=== PATIENT | male | born 1995 | race Two or more races ===

== ENCOUNTER 2024-12-19 16:20 | Emergency (ER) | payer MEDICAID, OTHER ==
[~2024-12-19] VITALS: Ht 182.9 cm; Wt 78.0 kg
[2024-12-19 18:45] LABS: BASOPHILS % (AUTO) 0.1 % (0.0-2.0); EOSINOPHILS # (AUTO) 0.1 K/uL (0.0-0.7); EOSINOPHILS % (AUTO) 0.6 % (0.0-6.0); HEMATOCRIT 50 % (39-51); HEMOGLOBIN 17.2 g/dL (13.5-17.5); LYMPHOCYTES # (AUTO) 1.7 K/uL (0.8-4.8); LYMPHOCYTES % (AUTO) 19.9 % (20.0-44.0); MEAN CORPUSCULAR HEMOGLOBIN 29 PG (26.0-33.0); MEAN CORPUSCULAR HGB CONC 35 g/dl (31.0-36.0); MEAN CORPUSCULAR VOLUME 84 fL (80-96); MONOCYTES # (AUTO) 0.5 K/uL (0.1-1.30); NEUTROPHILS # (AUTO) 6.2 K/uL (1.8-8.9); NEUTROPHILS % (AUTO) 73.4 % (43.0-81.0); PLATELET COUNT (AUTO) 160 K/uL (150-450); RED BLOOD CELL COUNT(AUTO) 5.98 MIL/uL (4.5-6.0); RED CELL DISTRIBUTION WIDTH 13.3 % (11.5-15.0); WHITE BLOOD COUNT (AUTO) 8.5 K/uL (4.3-11.0)
[2024-12-19 18:51] LABS: CALCIUM, SERUM 8.9 mg/dL (8.5-10.1); CREATININE 0.9 mg/dL (0.6-1.3); POTASSIUM 4.3 mmol/L (3.5-5.1)
[2024-12-19] MEDS ORDERED: KETOROLAC TROMETHAMINE 15 MG/ML VIAL ONE (18:51)
[2024-12-19] MEDS ORDERED: METOCLOPRAMIDE HCL 10 MG/2 ML VIAL ONE (18:52)
[2024-12-19] MEDS ORDERED: MECLIZINE HCL 25 MG TABLET ONE (18:52)
[2024-12-19 18:57] LABS: ALBUMIN 4.2 g/dL (3.4-5.0); BILIRUBIN,DIRECT 0.1 mg/dL (0.0-0.2); BILIRUBIN,TOTAL 0.4 mg/dL (0.2-1.0); TOTAL PROTEIN, SERUM 7.9 g/dL (6.4-8.2)
[2024-12-19] MEDS: IV NS 0.9% 1,000 ML BAG IV ONE (19:14)
[2024-12-19] MEDS: MECLIZINE HCL 25 MG TABLET PO ONE (19:15)
[2024-12-19] MEDS: KETOROLAC TROMETHAMINE 15 MG/ML VIAL IV ONE (19:16)
[2024-12-19] MEDS: METOCLOPRAMIDE HCL 10 MG/2 ML VIAL IV ONE (19:17)
[2024-12-19] MEDS ORDERED: IV NS 0.9% 250 ML IV ONE (19:23)
[2024-12-19] MEDS ORDERED: IOHEXOL-350 100 ML VIAL IV ONE (19:23)
[2024-12-19] MEDS ORDERED: HYDR-500 PO (20:41)
[2024-12-19 21:05] VITALS: BP 128/77; TEMP 208.4; O2SAT 98
== END 2024-12-19 21:06 | disposition home or self-care (01) ==
LOC: ER 16:35
DX: F41.1 Generalized anxiety disorder (principal); R11.0 Nausea; M54.2 Cervicalgia; Z86.19 Personal history of other infectious and parasitic diseases
CPT/HCPCS: 99285; 70498; 96374; 96361; 96375; 93005; 70496; 85025; 80048; 83690; 80076; 36415; J1885; J8597; J2765; J7030; J7050; Q9967